=== PATIENT | female | born 1970 | race Asian ===

== ENCOUNTER 2019-06-08 21:23 | Emergency (ER) | payer SELFPAY ==
[~2019-06-08] VITALS: Ht 165.1 cm; Wt 80.0 kg
[2019-06-09] MEDS ORDERED: METOCLOPRAMIDE HCL 10MG/2ML VIAL IV ONE (01:45)
[2019-06-09] MEDS ORDERED: SODIUM CHLORIDE 0.9% 1,000 ML IV ONE (01:45)
[2019-06-09 04:08] VITALS: BP 125/68
== END 2019-06-09 04:21 | disposition home or self-care (01) ==
LOC: ER 21:23
DX: G43.909 Migraine, unspecified, not intractable, without status migrainosus (principal); G44.89 Other headache syndrome; R11.0 Nausea; Z91.018 Allergy to other foods
CPT/HCPCS: 70450; 81025; 96374; 99284; J2765; J7030; Z7610